=== PATIENT | female | born 1945 | race Caucasian/White ===

== ENCOUNTER → 2017-07-07 | Outpatient (CLI) | payer BC ==
--- NOTE | 2017-07-07 14:53 | RAD ---
Bilateral lower extremity venous ultrasound, 07/07/2017: History: Leg swelling, right leg pain Duplex evaluation of the deep veins in the lower extremities was performed including grayscale, color-flow and spectral Doppler analysis. The femoral and popliteal veins demonstrate normal compressibility and normal responses to distal augmentation maneuvers. Color imaging of those vessels shows no evidence of intraluminal clot. The visualized deep veins in both calves are patent. Subcutaneous edema is present in the lower legs, worse on the right. IMPRESSION: There is no sonographic evidence of deep vein thrombosis in either lower extremity.
== END | disposition home or self-care (01) ==
LOC: US 13:13
PROVIDERS: ATTEND Family Medicine
DX: M79.604 Pain in right leg (principal); R60.9 Edema, unspecified
CPT/HCPCS: 93970

== ENCOUNTER → 2017-07-21 | Outpatient (CLI) | payer BC ==
--- NOTE | 2017-07-21 15:22 | CARD ---
APPROVED REPORT EXAM: Two-dimensional and M-mode echocardiogram with Doppler and color Doppler. Other Information Quality : Good INDICATION COPD 2D DIMENSIONS Left Atrium(2D)3.3 (1.6-4.0cm)IVSd1.2 (0.7-1.1cm) Aortic Root(2D)2.6 (2.0-3.7cm)LVDd4.2 (3.9-5.9cm) LVOT Diameter2.0 (1.8-2.4cm)PWd1.2 (0.7-1.1cm) LVDs3.0 (2.5-4.0cm)FS (%) 29.2 % SV44.7 mlLVEF(%)55.0 (>50%) Aortic Valve AoV Peak Dylan.129.3cm/sAoV VTI29.8cm AO Peak GR.6.7mmHgLVOT Peak Dylan.116.0cm/s AO Mean GR.3mmHgAVA (VMAX)2.73cm2 ANABELL (VTI)2.60cm2 Mitral Valve MV E Zemzqnmk78.0cm/sMV DECEL [id number] MV A Dxnktfbj11.0cm/sE/A Ratio1.3 Tricuspid Valve TR P. Ymppjxoe795gb/sRAP ZCQRMHQZ0ouTp TR Peak Gr.34deNmMWHP01gqXi Pulmonary Vein S1 Fimlyzcz07.2cm/sD2 Luodnedn43.8cm/s LEFT VENTRICLE The left ventricle is normal size. There is borderline to mild concentric left ventricular hypertroph y. Left ventricle systolic function is normal. The Ejection Fraction is 55%. There is normal LV segme ntal wall motion. Transmitral Doppler flow pattern is Grade II-pseudonormal filling dynamics. RIGHT VENTRICLE The right ventricle is mildly dilated The right ventricular systolic function is normal. ATRIA The left atrium size is normal. The right atrium size is mildly dilated The interatrial septum is int act with no evidence for an atrial septal defect or patent foramen ovale as noted on 2-D or Doppler i maging. AORTIC VALVE The aortic valve is calcified but opens well. Doppler and Color Flow revealed no significant aortic r egurgitation. There is no significant aortic valvular stenosis. MITRAL VALVE The mitral valve is normal in structure and function. There is no evidence of mitral valve prolapse. There is no mitral valve stenosis. Doppler and Color Flow revealed no mitral valve regurgitation note d. TRICUSPID VALVE The tricuspid valve is normal in structure Doppler and Color Flow revealed mild tricuspid regurgitati on. There is no pulmonary hypertension. The PA pressure was estimated at 26 mmHg. There is no tricusp id valve stenosis. PULMONIC VALVE The pulmonary valve is normal in structure and function. Doppler and Color Flow revealed no pulmonic valvular regurgitation. There is no pulmonic valvular stenosis. GREAT VESSELS The aortic root is normal in size. The ascending aorta is normal in size. The IVC is normal in size a nd collapses >50% with inspiration. PERICARDIAL EFFUSION There is no pleural effusion. There is no evidence of significant pericardial effusion. Critical Notification Critical Value: No <Conclusion> Left ventricle systolic function is normal. The Ejection Fraction is 55%. Transmitral Doppler flow pattern is Grade II-pseudonormal filling dynamics. There is borderline to mild concentric left ventricular hypertrophy. The right ventricle is mildly dilated The right atrium size is mildly dilated The aortic valve is calcified but opens well. The mitral valve is normal in structure and function. Doppler and Color Flow revealed mild tricuspid regurgitation. There is no pulmonary hypertension. The PA pressure was estimated at 26 mmHg. The pulmonary valve is normal in structure and function. There is no evidence of significant pericardial effusion.
== END | disposition home or self-care (01) ==
LOC: ECHO 09:30
PROVIDERS: ATTEND Internal Medicine Cardiovascular Disease
DX: J44.1 Chronic obstructive pulmonary disease with (acute) exacerbation (principal); I50.23 Acute on chronic systolic (congestive) heart failure; I51.7 Cardiomegaly
CPT/HCPCS: 93306

== ENCOUNTER → 2018-10-17 | Outpatient (CLI) | payer BC ==
[~2018-10-17] MED LIST: IOHEXOL 300 MG/ML 100ML VIAL. IV ONE
--- NOTE | 2018-10-17 09:30 | RAD ---
CT scan of the chest without and with contrast 10/17/2018 CLINICAL HISTORY: COPD. History of lung nodule. TECHNIQUE: Contiguous, 5 mm axial sections were obtained through the chest and upper abdomen without and with use of intravenous contrast. 75 cc of Omnipaque 300 were administered intravenously during this examination. One or more of the following individualized dose reduction techniques were utilized for this study: 1. Automated exposure control. 2. Adjustment of the mA and/or kV according to patient size. 3. Use of iterative reconstruction technique. FINDINGS: No previous studies are available for comparison. The unenhanced CT images of the chest demonstrates scattered atherosclerotic calcification of the thoracic aorta and its branches. Fairly extensive coronary artery calcifications are seen. The postcontrast images demonstrate no hilar, axillary or mediastinal lymphadenopathy. The heart is normal in size. The thoracic aorta is mildly tortuous but tapers normally. Mild emphysematous changes are seen involving both lungs. Areas of apical pleural thickening and scarring are seen involving both upper lobes, right greater than left. No pulmonary mass or nodule is seen. No area of consolidation is noted. Minimal dependent subsegmental atelectasis involving both lower lobes. No pleural effusion or pneumothorax is seen. Images through the upper abdomen demonstrate atherosclerotic calcification of the abdominal aorta and its branches. Mild S-shaped curvature of the thoracolumbar spine is seen. Degenerative changes are seen involving the thoracic spine. IMPRESSION: No acute abnormality is seen. Electronically signed by: Marco A Fuentes MD (10/17/2018 9:26 AM) [facility]
== END | disposition home or self-care (01) ==
LOC: CT 08:06
PROVIDERS: ATTEND Family Medicine
DX: J98.11 Atelectasis (principal); I25.10 Atherosclerotic heart disease of native coronary artery without angina pectoris; I70.0 Atherosclerosis of aorta; J44.9 Chronic obstructive pulmonary disease, unspecified; Z79.01 Long term (current) use of anticoagulants; Z87.891 Personal history of nicotine dependence
CPT/HCPCS: 71270; Q9967

== ENCOUNTER 2019-07-12 16:49 | Emergency (ER) | payer BC ==
[~2019-07-12] VITALS: Ht 167.6 cm; Wt 63.5 kg
--- NOTE | 2019-07-12 19:37 | RAD ---
Exam: Right lower extremity venous duplex study INDICATION: Leg swelling TECHNIQUE: Using a combination of real-time ultrasound imaging and color-flow and pulse Doppler imaging techniques along with graded compression and augmentation, duplex evaluation of the deep venous systems of rightlower extremity was performed. Multiple images were obtained. Findings: There is no sonographic evidence for deep venous thrombosis involving the visualized deep venous structures of the right lower extremity. IMPRESSION: No acute DVT in the right lower extremity Electronically signed by: Anson Fernandez MD (07/12/2019 7:34 PM) [facility]
[2019-07-12 19:44] VITALS: BP 127/61
--- NOTE | 2019-07-12 20:35 | PHYS DOC ---
Past Medical History Past Medical History: COPD Additional Past Medical Histor: MS Past Surgical History: Appendectomy Additional Past Surgical Histo: GANGLION CYST LT HAND, EYE SURGERY, CATARACT Additional Information: PT VAPES Alcohol Use: None Drug Use: None Adult General Chief Complaint Chief Complaint: LOWER EXT PAIN [facility] HPI Patient is a 74 year old female with history of COPD who presents to the ED today complaining of swelling on the right medial calf that she noted yesterday. Patient states the swelling tends to improve when she elevates the right lower extremity. Denies any known injury. She states she was seen by the PCP to rule o ut DVT. Patient denies any recent hospitalizations, denies any use of, denies any chest pain or shortness of breath, denies any personal family history of DVTs. Review of Systems Review of Systems Constitutional: Denies fever or chills [] Eyes: Denies change in visual acuity, redness, or eye pain [] HENT: Denies nasal congestion or sore throat [] Respiratory: Denies cough or shortness of breath [] Cardiovascular: No additional information not addressed in HPI [] GI: Denies abdominal pain, nausea, vomiting, bloody stools or diarrhea [] : Denies dysuria or hematuria [] Musculoskeletal: Reports right lower extremity swelling Integument: Denies rash or skin lesions [] Neurologic: Denies headache, focal weakness or sensory changes [] All other systems were reviewed and found to be within normal limits, except as documented in this note. Allergies Allergies Allergies Coded Allergies Type Severity Reaction Last Updated Verified Sulfa (Sulfonamide Antibiotics) Allergy Intermediate 10/17/18 Yes Physical Exam Physical Exam Constitutional: Well developed, well nourished, no acute distress, non-toxic appearance. [] HENT: Normocephalic, atraumatic, bilateral external ears normal, oropharynx moist, no oral exudates, nose normal. [] Eyes: PERRLA, EOMI, conjunctiva normal, no discharge. [] Neck: Normal range of motion, no tenderness, supple, no stridor. [] Cardiovascular:Heart rate regular rhythm, no murmur [] Lungs & Thorax: Bilateral breath sounds clear to auscultation [] Abdomen: Bowel sounds normal, soft, no tenderness, no masses, no pulsatile masses. [] Skin: Warm, dry, no erythema, no rash. [] Back: No tenderness, no CVA tenderness. [] Extremities: Right lower extremity with no obvious edema or swelling, no signs of trauma, negative Homans sign bilaterally no warmth to the right lower extremity. No erythema. Neurologic: Alert and oriented X 3, normal motor function, normal sensory function, no focal deficits noted. [] Psychologic: Affect normal, judgement normal, mood normal. [] Current Patient Data Vital Signs Vital Signs Date Time Temp Pulse Resp B/P (MAP) Pulse Ox O2 Delivery O2 Flow Rate FiO2 07/12/19 19:44 74 127/61 (83) 92 Room Air 07/12/19 18:14 29 07/12/19 17:26 97.7 97.7 EKG EKG [] Radiology/Procedures Radiology/Procedures []PROCEDURE: VENOUS LOWER EXTREMITY RIGHT Exam: Right lower extremity venous duplex study INDICATION: Leg swelling TECHNIQUE: Using a combination of real-time ultrasound imaging and color-flow and pulse Doppler imaging techniques along with graded compression and augmentation, duplex evaluation of the deep venous systems of rightlower extremity was performed. Multiple images were obtained. Findings: There is no sonographic evidence for deep venous thrombosis involving the visualized deep venous structures of the right lower extremity. IMPRESSION: No acute DVT in the right lower extremity Electronically signed by: Kayla Wilkins MD (07/12/2019 7:34 PM) [facility] DICTATED and SIGNED BY: KAYLA WILKINS MD DATE: 07/12/191933 Course & Med Decision Making Course & Med Decision Making Pertinent Labs and Imaging studies reviewed. (See chart for details) This is a 74-year-old female patient presenting to the ED today with a right lower extremity swelling that began yesterday, patient was sent to the ED for DVT rule out, venous Doppler of the right lower extremity is negative. Patient was discharged to home. Ice elevation encouraged. Follow-up with PCP in 1-2 weeks. Dragon Disclaimer Dragon Disclaimer This electronic medical record was generated, in whole or in part, using a voice recognition dictation system. Departure Departure Impression: Primary Impression: Right leg swelling Disposition: 01 HOME, SELF-CARE Condition: STABLE Referrals: ELIZA BALTAZAR MD (PCP) Follow-up with your doctor next week Patient Instructions: Edema, [id number] Additional Instructions: You were evaluated in the emergency room for right lower extremity swelling, your venous Doppler of the right lower extremity is negative for DVT/blood clot. We encourage you to try and ice and elevate the extremity. Please follow-up with your doctor in the course of next week. SALOME CROW APRN Jul 12, 2019 20:35
== END 2019-07-12 20:52 | disposition home or self-care (01) ==
LOC: ER 16:49
DX: M79.89 Other specified soft tissue disorders (principal); J44.9 Chronic obstructive pulmonary disease, unspecified; F17.210 Nicotine dependence, cigarettes, uncomplicated; Z90.89 Acquired absence of other organs; Z88.2 Allergy status to sulfonamides
CPT/HCPCS: 93971; 99284

== ENCOUNTER → 2021-01-21 | Outpatient (CLI) | payer BC ==
--- NOTE | 2021-01-21 12:01 | CARD ---
MR#: [id number] Date of Study: 01/21/2021 Ordering Physician: SAVANNAH ZUNIGA, Referring Physician: SAVANNAH ZUNIGA, Tech: Sneha Beth, [facility] APPROVED REPORT EXAM: Two-dimensional and M-mode echocardiogram with Doppler and color Doppler. Other Information Quality : AverageHR: 79bpm Technically limited study due to body habitus. INDICATION COPD Dyspnea 2D DIMENSIONS RVDd2.6 (2.9-3.5cm)Left Atrium(2D)3.2 (1.6-4.0cm) IVSd1.3 (0.7-1.1cm)Aortic Root(2D)2.8 (2.0-3.7cm) LVDd4.2 (3.9-5.9cm)LVOT Diameter2.0 (1.8-2.4cm) PWd1.0 (0.7-1.1cm)LVDs2.7 (2.5-4.0cm) FS (%) 35.6 %SV51.8 ml LVEF(%)65.4 (>50%) Aortic Valve AoV Peak Dylan.134.0cm/sAoV VTI32.7cm AO Peak GR.7.2mmHgLVOT Peak Dylan.125.9cm/s LVOT VTI 29.35cmAO Mean GR.4mmHg ANABELL (VMAX)2.55yz0KMQ (VTI)2.91cm2 Mitral Valve MV E Aemipecb69.2cm/sMV DECEL [id number] MV A Omrwwecu96.0cm/sMV ONH20er E/A Ratio0.9MVA (PHT)3.45cm2 TDI E/Lateral E'7.8E/Medial E'9.0 Pulmonary Valve PV Peak Zgplnpbu52.1cm/sPV Peak Grad.4mmHg Tricuspid Valve TR P. Rdhyukhm013kz/sRAP CKXRJIZT2ohPw TR Peak Gr.17yhFgNJRL01zoAi Pulmonary Vein S1 Ftmjsvht70.2cm/sD2 Yswnsarg08.0cm/s PVa vxqtltzz150cqph LEFT VENTRICLE The left ventricle is normal size. There is mild to moderate concentric left ventricular hypertrophy. The left ventricular systolic function is normal and the ejection fraction is within normal range. T he Ejection Fraction is 55-60%. There is normal LV segmental wall motion. Transmitral Doppler flow pa ttern is Grade I-abnormal relaxation pattern. RIGHT VENTRICLE The right ventricle is normal size. There is normal right ventricular wall thickness. The right ventr icular systolic function is normal. ATRIA The left atrium size is normal. The right atrium size is normal. The interatrial septum is intact wit h no evidence for an atrial septal defect or patent foramen ovale as noted on 2-D or Doppler imaging. AORTIC VALVE The aortic valve is thickened but opens well. Doppler and Color Flow revealed trace aortic regurgitat ion. There is no significant aortic valvular stenosis. Calculated aortic valve area is 2.89 cm2 with maximum pressure gradient of 8 mmHg and mean pressure gradient of 5 mmHg. MITRAL VALVE The mitral valve is normal in structure and function. There is no evidence of mitral valve prolapse. There is no mitral valve stenosis. Doppler and Color-flow revealed trace mitral regurgitation. TRICUSPID VALVE The tricuspid valve is normal in structure and function. Doppler and Color Flow revealed trace tricus pid regurgitation with an estimated PAP of 30 mmHg. There is no tricuspid valve stenosis. PULMONIC VALVE The pulmonic valve is not well visualized. Doppler and Color Flow revealed no pulmonic valvular regur gitation. There is no pulmonic valvular stenosis. GREAT VESSELS The aortic root is normal in size. The IVC is normal in size and collapses >50% with inspiration. PERICARDIAL EFFUSION There is no evidence of significant pericardial effusion. Critical Notification Critical Value: No <Conclusion> The left ventricular systolic function is normal and the ejection fraction is within normal range. Th e Ejection Fraction is 55-60%. There is normal LV segmental wall motion. Signed by : Savannah Zuniga, Electronically Approved : 01/21/2021 12:00:50
== END ==
LOC: ECHO 08:05
PROVIDERS: ATTEND Internal Medicine Cardiovascular Disease
DX: I51.7 Cardiomegaly (principal)
CPT/HCPCS: 93306